=== PATIENT | female | born 1990 | race Caucasian/White ===

== ENCOUNTER 2017-12-27 22:21 | Emergency (ER) | payer MEDICARE, OTHER ==
[~2017-12-27] VITALS: Ht 157.5 cm; Wt 102.1 kg
[~2017-12-27 22:21] MED LIST: BENZ1TAB22 PO; RISP0.253 PO
[2017-12-27 23:04] VITALS: BP 137/70
== END 2017-12-28 00:03 | disposition home or self-care (01) ==
LOC: ER 22:23
DX: Z76.0 Encounter for issue of repeat prescription (principal); F41.9 Anxiety disorder, unspecified; F32.9 Major depressive disorder, single episode, unspecified
CPT/HCPCS: 99283; A4606; Z7610

== ENCOUNTER 2020-02-22 03:43 | Emergency (ER) | payer MEDICARE, OTHER ==
[~2020-02-22] VITALS: Ht 160 cm; Wt 113.4 kg
--- NOTE | 2020-02-22 04:14 | NUR ---
PATIENT CAME TO ER BED 10 C/O SUICIDAL IDEATION "EITHER BY OVERDOSING ON DRUGS OR RUNNING INTO TRAFFIC". PATIENT IS AAOX4. NO SOB. BREATHING EVENLY AND UNLABORED ON ROOM AIR. BELONGINGS ARE REMOVED AND PLACED INTO A LOCKED LOCKER. PATIENT IS IN A GOWN. SITTER IS AT BEDSIDE.
[2020-02-22 04:39] LABS: APPEARANCE,URINE CLEAR (CLEAR); BILIRUBIN,URINE NEGATIVE (NEGATIVE); BLOOD, URINE NEGATIVE Ery/uL (NEGATIVE); COLOR,URINE YELLOW (YELLOW); KETONES,URINE NEGATIVE (NEGATIVE); LEUKOCYTE ESTERASE ,URINE TRACE (NEGATIVE); NITRITE, URINE NEGATIVE (NEGATIVE); PH,URINE 7.5 (5.0-8.0); PROTEIN,URINE NEGATIVE (NEGATIVE); UGLUCOSE NEGATIVE (NEGATIVE); UROBILINOGEN,URINE 0.2 EU/dL (0.2)
[2020-02-22 04:39] LABS: BASOPHILS % (AUTO) 0.4 % (0.0-2.0); EOSINOPHILS % (AUTO) 1.4 % (0.0-6.0); HEMATOCRIT 39 % (33-45); HEMOGLOBIN 12.8 g/dL (11.5-14.8); LYMPHOCYTES # (AUTO) 1.7 /CMM (0.8-4.8); LYMPHOCYTES % (AUTO) 19.1 % (20.0-44.0); MEAN CORPUSCULAR HGB CONC 33 g/dl (31.0-36.0); MEAN CORPUSCULAR VOLUME 87 fL (82-100); MONOCYTES # (AUTO) 0.7 /CMM (0.1-1.30); MONOCYTES % (AUTO) 7.9 % (2.0-12.0); NEUTROPHILS # (AUTO) 6.4 /CMM (1.8-8.9); NEUTROPHILS % (AUTO) 71.2 % (43.0-81.0); PLATELET COUNT (AUTO) 234 /CMM (150-450); RED BLOOD CELL COUNT(AUTO) 4.46 MIL/uL (4.0-5.2)
[2020-02-22 04:46] LABS: BACTERIA,URINE Few /HPF (None Seen); SQUAMOUS EPITHELIAL CELL,UR Moderate /HPF (None Seen)
[2020-02-22 04:56] LABS: ACETAMINOPHEN 0 ug/ml (10-30); ALANINE AMINOTRANSFERASE 23 U/L (12-78); ALBUMIN 3.4 g/dL (3.4-5.0); ALCOHOL, BLOOD < 3 mg/dL (0-0); ALKALINE PHOSPHATASE 89 U/L (46-116); ASPARTATE AMINOTRANSFERASE 15 U/L (15-37); BILIRUBIN,DIRECT 0.1 mg/dL (0.0-0.2); BILIRUBIN,TOTAL 0.1 mg/dL (0.2-1.0); CALCIUM, SERUM 8.4 mg/dL (8.5-10.1); CARBON DIOXIDE 26 mmol/L (21-32); CHLORIDE 103 mmol/L (98-107); CREATININE 0.9 mg/dL (0.6-1.3); GLUCOSE 64 mg/dL (74-106); POTASSIUM 3.6 mmol/L (3.5-5.1); SALICYLATE 0.7 mg/dL (2.8-20.0); SODIUM SERUM 137 mmol/L (136-145); TOTAL PROTEIN, SERUM 7.4 g/dL (6.4-8.2); UREA NITROGEN, BLOOD 11 mg/dL (7-18)
--- NOTE | 2020-02-22 05:43 | NUR ---
pt provided with peanut butter and jelly sandwich and juice per dr. ro.
--- NOTE | 2020-02-22 06:00 | NUR ---
CLINICAL INFORMATION FAXED TO [facility]
--- NOTE | 2020-02-22 06:11 | NUR ---
REC'D A CALL FROM [facility], PER [facility] THEY ARE IN FULL CAPACITY AND UNABLE TO ACCEPT THE PT AT THIS TIME
--- NOTE | 2020-02-22 07:00 | NUR ---
PT RESTING COMFORTABLY IN BED. VITAL SIGNS STABLE. NO ACUTE DISTRESS NOTED AT THIS TIME. SITTER STILL AT BEDSIDE, WILL CONTINUE TO MONITOR
--- NOTE | 2020-02-22 07:27 | NUR ---
report given to Manpreet davenport for rm
--- NOTE | 2020-02-22 07:28 | NUR ---
endorsement received from bharathi davenport for rm. patient in bed asleep, easily arousable by voice. hooked to monitor, will continue to monitor accordingly
--- NOTE | 2020-02-22 11:36 | NUR ---
Dr. Amaya accepting MD unit [phone]
--- NOTE | 2020-02-22 12:01 | NUR ---
10:30am This SW attempted to conduct voluntary psychiatric hospitalization consult. Patient is a 29-year old female. Per MD note, patient presented to [facility] with suicidal ideation, plan to run into traffic or overdose. Patient was asleep and patient covered her face with the bed sheet when this SW attempted to speak with her. This SW to return later to attempt consult.
--- NOTE | 2020-02-22 12:54 | NUR ---
report given to ilana MALHOTRA for rm
--- NOTE | 2020-02-22 14:16 | NUR ---
CALLED [facility] FOR TRANSPORT, SPOKE WITH RACHEL, ETA ~[phone]
--- NOTE | 2020-02-22 15:01 | NUR ---
PICKED UP BY [facility] [address] IN STABLE CONDITION. PATIENT WILL BE TRANSFERRED TO [facility]. CLINICALS PROVIDED TO EMT TO BE GIVEN IN THE FACILITY.
[2020-02-22 15:12] VITALS: BP 103/70
== END 2020-02-22 15:12 ==
LOC: ER 03:48
DX: R45.851 Suicidal ideations (principal); F41.9 Anxiety disorder, unspecified; F32.9 Major depressive disorder, single episode, unspecified; Z88.8 Allergy status to other drugs, medicaments and biological substances; Z59.0 Homelessness; Z79.899 Other long term (current) drug therapy
CPT/HCPCS: 36415; 80048; 80076; 80305; 80307; 80329; 81001; 84703; 85025; 99285; G0480; 81000-TC

== ENCOUNTER 2021-06-24 09:43 | Emergency (ER) | payer MEDICARE, OTHER ==
[~2021-06-24] VITALS: Ht 157.5 cm; Wt 102.1 kg
[2021-06-24 10:20] VITALS: BP 121/75
[2021-06-24] MEDS ORDERED: IBUPROFEN 600 MG TABLET PO ONE (10:30)
[2021-06-24] MEDS ORDERED: IBUP-1955 PO (10:47)
[2021-06-24] MEDS ORDERED: IBUPROFEN 600 MG TABLET ONE (10:52)
--- NOTE | 2021-06-24 10:59 | NUR ---
Patient discharged to home in stable condition. Written and verbal after care instructions given. Patient verbalizes understanding of instruction.
== END 2021-06-24 11:00 | disposition home or self-care (01) ==
LOC: ER 09:52
DX: M25.562 Pain in left knee (principal); Z88.8 Allergy status to other drugs, medicaments and biological substances; Z79.1 Long term (current) use of non-steroidal anti-inflammatories (NSAID); Z79.899 Other long term (current) drug therapy; W10.9XXA Fall (on) (from) unspecified stairs and steps, initial encounter; Y93.89 Activity, other specified; Y92.89 Other specified places as the place of occurrence of the external cause; Y99.8 Other external cause status
CPT/HCPCS: 73564-TC

== ENCOUNTER 2022-05-25 16:07 | Emergency (ER) | payer MEDICARE, OTHER ==
[~2022-05-25] VITALS: Ht 160 cm; Wt 167.8 kg
[~2022-05-25 16:07] MED LIST changes: +IBUP-1955 PO
[2022-05-25 16:23] VITALS: BP 127/99
[2022-05-25] MEDS ORDERED: IBUPROFEN 600 MG TABLET ONE (17:03)
[2022-05-25] MEDS: IBUPROFEN 600 MG TABLET PO ONE (17:05)
[2022-05-25] MEDS ORDERED: IBUP-1955 PO (17:48)
--- NOTE | 2022-05-25 17:54 | NUR ---
Patient discharged to home in stable condition. Written and verbal after care instructions given. Patient verbalizes understanding of instruction.
== END 2022-05-25 18:17 | disposition home or self-care (01) ==
LOC: ER 16:16
DX: G89.29 Other chronic pain (principal); M25.562 Pain in left knee; F41.9 Anxiety disorder, unspecified; F32.A Depression, unspecified; Z88.8 Allergy status to other drugs, medicaments and biological substances; Z59.00 Homelessness unspecified; Z79.899 Other long term (current) drug therapy
CPT/HCPCS: 73564-TC